=== PATIENT | male | born 1945 | race Hispanic/Latino ===

== ENCOUNTER → 2018-11-29 | Outpatient (CLI) | payer OTHER, MEDICARE ==
[~2018-11-29] VITALS: Ht 177.8 cm; Wt 96.2 kg
[~2018-11-29] MED LIST: LISI10TA7 PO; PRAV40TA3 PO; REGADENOSON 0.4 MG/5 ML PF SYG IVP SCH
== END | disposition home or self-care (01) ==
LOC: SHCH 07:34
PROVIDERS: ATTEND Internal Medicine Cardiovascular Disease
DX: I20.9 Angina pectoris, unspecified (principal)
CPT/HCPCS: 78452; 93017; 96374; A9500 ×2; J2785